=== PATIENT | male | born 1970 | race Caucasian/White ===

== ENCOUNTER → 2018-07-21 | Outpatient (CLI) | payer OTHER ==
[2012-09-09 16:50] VITALS: BP 120/85
[2018-07-21 11:42] LABS: EOS # 0.1 (0.04-0.40); EOS % 1.8 % (0.0-4.0); HEMATOCRIT 43.1 % (42.0-52.0); HEMOGLOBIN 14.7 g/dL (13.5-18.0); LYMPH# 1.2 (1.50-4.00); MEAN CELL VOLUME 86 fl (78-100); MEAN CORPUSCULAR HEMOGLOBIN 29 pg (27-31); MEAN CORPUSCULAR HGB CONC 34 g/dL (33-37); MEAN PLATELET VOLUME 9.9 fl (7.4-10.4); MONO # 0.5 (0.20-0.80); NEU # 3.3 (1.40-6.50); PLATELET COUNT 276 K/mm3 (130-400); RED BLOOD COUNT 5.04 M/mm3 (4.20-5.60); WHITE BLOOD COUNT 5.1 K/mm3 (4.8-10.8)
[2018-07-21 11:50] LABS: CALCIUM 9.7 mg/dL (8.4-10.2); POTASSIUM 4.6 mmol/L (3.6-5.0); TOTAL BILIRUBIN 0.9 mg/dL (0.2-1.3); TOTAL PROTEIN 8.2 g/dL (6.3-8.2)
== END ==
LOC: RAD 11:14
PROVIDERS: Family Medicine
DX: Z00.00 Encounter for general adult medical examination without abnormal findings (principal); E04.9 Nontoxic goiter, unspecified; R91.1 Solitary pulmonary nodule; R53.83 Other fatigue

== ENCOUNTER → 2018-08-07 | Outpatient (CLI) | payer OTHER ==
[2012-09-09 16:50] VITALS: BP 120/85
== END ==
LOC: RAD 13:59
DX: R63.4 Abnormal weight loss (principal); R53.83 Other fatigue; R05 Cough

== ENCOUNTER → 2018-08-08 | Outpatient (CLI) | payer OTHER ==
[2012-09-09 16:50] VITALS: BP 120/85
== END ==
LOC: RAD 08:23
DX: M46.86 Other specified inflammatory spondylopathies, lumbar region (principal); R63.4 Abnormal weight loss; R53.83 Other fatigue; R91.1 Solitary pulmonary nodule; R82.90 Unspecified abnormal findings in urine
CPT/HCPCS: Q9967

== ENCOUNTER → 2018-08-26 | Day surgery (SDC) | payer OTHER ==
[2012-09-09 16:50] VITALS: BP 120/85
[2018-09-02 02:20] LABS: VITAMIN D 1,25 DIHYDROXY 70 pg/mL (18-64)
== END ==
LOC: MSO 12:28
PROVIDERS: Internal Medicine Gastroenterology
DX: R63.0 Anorexia (principal); K21.0 Gastro-esophageal reflux disease with esophagitis; R63.4 Abnormal weight loss; J45.909 Unspecified asthma, uncomplicated
CPT/HCPCS: 00813; J2704; J7120

== ENCOUNTER → 2018-09-01 | Outpatient (CLI) | payer OTHER ==
[2012-09-09 16:50] VITALS: BP 120/85
[2018-09-01 13:33] LABS: URINE APPEARANCE CLEAR; URINE COLOR YELLOW
[2018-09-01 13:34] LABS: URINE BILIRUBIN NEGATIVE (NEGATIVE); URINE BLOOD NEGATIVE (NEGATIVE); URINE GLUCOSE NEGATIVE (NEGATIVE); URINE KETONE NEGATIVE (NEGATIVE); URINE LEUKOCYTE ESTERASE NEGATIVE (NEGATIVE); URINE NITRATE NEGATIVE (NEGATIVE); URINE PROTEIN(semi-quant) NEGATIVE (NEGATIVE); URINE UROBILINOGEN NORMAL (NORMAL); URINE WBC 0-1 /hpf (0-3)
== END ==
LOC: LAB 12:15
PROVIDERS: Family Medicine
DX: N39.9 Disorder of urinary system, unspecified (principal); R91.1 Solitary pulmonary nodule; R53.83 Other fatigue; R63.4 Abnormal weight loss; R05 Cough

== ENCOUNTER → 2018-09-15 | Outpatient (CLI) | payer OTHER ==
[2012-09-09 16:50] VITALS: BP 120/85
== END ==
LOC: LAB 16:28
DX: R20.0 Anesthesia of skin (principal); R53.83 Other fatigue

== ENCOUNTER → 2018-10-01 | Outpatient (CLI) | payer OTHER ==
[2012-09-09 16:50] VITALS: BP 120/85
== END ==
LOC: RAD 08:09
DX: G95.89 Other specified diseases of spinal cord (principal); G93.89 Other specified disorders of brain; R20.0 Anesthesia of skin; R63.4 Abnormal weight loss; R91.1 Solitary pulmonary nodule; R53.83 Other fatigue
CPT/HCPCS: A9585

== ENCOUNTER 2018-10-24 09:00 | Outpatient (RCR) | payer OTHER ==
[2012-09-09 16:50] VITALS: BP 120/85
== END 2019-01-14 | disposition still patient (30) ==
LOC: PT
DX: G37.3 Acute transverse myelitis in demyelinating disease of central nervous system (principal)

== ENCOUNTER → 2018-12-04 | Outpatient (CLI) | payer OTHER ==
[2012-09-09 16:50] VITALS: BP 120/85
== END ==
LOC: RAD 07:00
DX: G37.3 Acute transverse myelitis in demyelinating disease of central nervous system (principal); R74.0 Nonspecific elevation of levels of transaminase and lactic acid dehydrogenase [LDH]

== ENCOUNTER → 2018-12-16 | Outpatient (CLI) | payer OTHER ==
[2012-09-09 16:50] VITALS: BP 120/85
[2018-12-16 17:22] LABS: ALBUMIN 4.3 g/dL (3.5-5.0)
[2018-12-16 17:25] LABS: TOTAL PROTEIN 6.8 g/dL (6.4-8.3)
[2018-12-16 17:26] LABS: TOTAL BILIRUBIN 0.6 mg/dL (0.2-1.2)
[2018-12-16 17:30] LABS: DIRECT BILIRUBIN 0.2 mg/dL (0.0-0.5)
== END ==
LOC: LAB 16:48
PROVIDERS: Family Medicine
DX: R74.0 Nonspecific elevation of levels of transaminase and lactic acid dehydrogenase [LDH] (principal)

== ENCOUNTER → 2019-01-06 | Outpatient (CLI) | payer OTHER ==
[2012-09-09 16:50] VITALS: BP 120/85
[2019-01-06 15:16] LABS: EOS % 0.7 % (0.0-4.0); HEMOGLOBIN 12.5 g/dL (13.5-18.0); LYMPH# 1.9 (1.50-4.00); MEAN CELL VOLUME 93 fl (78-100); MEAN CORPUSCULAR HEMOGLOBIN 31 pg (27-31); MEAN CORPUSCULAR HGB CONC 33 g/dL (33-37); MEAN PLATELET VOLUME 11.3 fl (7.4-10.4); MONO # 0.6 (0.20-0.80); NEU # 3.3 (1.40-6.50); PLATELET COUNT 209 K/mm3 (130-400); RED CELL DISTRIBUTION WIDTH 14.9 % (11.5-14.5); WHITE BLOOD COUNT 5.9 K/mm3 (4.8-10.8)
[2019-01-06 15:20] LABS: ALBUMIN 3.8 g/dL (3.5-5.0); POTASSIUM 3.9 mmol/L (3.5-5.1)
[2019-01-06 15:22] LABS: CALCIUM 9.2 mg/dL (8.3-10.5)
[2019-01-06 15:23] LABS: TOTAL PROTEIN 6.2 g/dL (6.4-8.3)
[2019-01-06 15:25] LABS: TOTAL BILIRUBIN 0.4 mg/dL (0.2-1.2)
== END ==
LOC: LAB 07:03
PROVIDERS: Family Medicine
DX: G37.3 Acute transverse myelitis in demyelinating disease of central nervous system (principal)

== ENCOUNTER → 2019-02-17 | Outpatient (CLI) | payer OTHER ==
[2012-09-09 16:50] VITALS: BP 120/85
[2019-02-17 18:09] LABS: ALBUMIN 4.8 g/dL (3.5-5.0)
[2019-02-17 18:11] LABS: TOTAL PROTEIN 7.3 g/dL (6.4-8.3)
[2019-02-17 18:13] LABS: TOTAL BILIRUBIN 0.8 mg/dL (0.2-1.2)
[2019-02-17 18:17] LABS: DIRECT BILIRUBIN 0.3 mg/dL (0.0-0.5)
== END ==
LOC: LAB 17:49
DX: R74.8 Abnormal levels of other serum enzymes (principal)

== ENCOUNTER → 2019-03-04 | Outpatient (CLI) | payer OTHER ==
[2012-09-09 16:50] VITALS: BP 120/85
[2019-03-04 18:22] LABS: ALBUMIN 4.6 g/dL (3.5-5.0)
[2019-03-04 18:25] LABS: TOTAL PROTEIN 6.9 g/dL (6.4-8.3)
[2019-03-04 18:26] LABS: TOTAL BILIRUBIN 0.5 mg/dL (0.2-1.2)
[2019-03-04 18:30] LABS: DIRECT BILIRUBIN 0.2 mg/dL (0.0-0.5)
== END ==
LOC: LAB 18:02
PROVIDERS: Family Medicine
DX: R74.8 Abnormal levels of other serum enzymes (principal)

== ENCOUNTER → 2019-03-19 | Outpatient (CLI) | payer OTHER ==
[2012-09-09 16:50] VITALS: BP 120/85
[2019-03-19 17:15] LABS: ALBUMIN 4.2 g/dL (3.5-5.0)
[2019-03-19 17:18] LABS: TOTAL PROTEIN 6.6 g/dL (6.4-8.3)
[2019-03-19 17:20] LABS: TOTAL BILIRUBIN 0.5 mg/dL (0.2-1.2)
[2019-03-19 17:23] LABS: DIRECT BILIRUBIN 0.2 mg/dL (0.0-0.5)
== END ==
LOC: LAB 16:57
DX: R74.8 Abnormal levels of other serum enzymes (principal)

== ENCOUNTER → 2019-03-23 | Outpatient (CLI) | payer OTHER ==
[2012-09-09 16:50] VITALS: BP 120/85
[2019-03-23 16:22] LABS: HEMATOCRIT 42.1 % (42.0-52.0); HEMOGLOBIN 14.2 g/dL (13.5-18.0); MEAN CELL VOLUME 92 fl (78-100); MEAN CORPUSCULAR HEMOGLOBIN 31 pg (27-31); MEAN CORPUSCULAR HGB CONC 34 g/dL (33-37); MEAN PLATELET VOLUME 9.7 fl (7.4-10.4); PLATELET COUNT 259 K/mm3 (130-400); RED BLOOD COUNT 4.57 M/mm3 (4.20-5.60); RED CELL DISTRIBUTION WIDTH 14.5 % (11.5-14.5); WHITE BLOOD COUNT 6.9 K/mm3 (4.8-10.8)
[2019-03-23 16:33] LABS: NEUTROPHILS 77 % (42-75)
[2019-03-23 16:34] LABS: LYMPHOCYTE 9 % (20-51); MONOCYTE 9 % (3-10)
== END ==
LOC: LAB 15:58
PROVIDERS: Psychiatry & Neurology Neurology
DX: G35 Multiple sclerosis (principal); Z79.899 Other long term (current) drug therapy; R94.5 Abnormal results of liver function studies

== ENCOUNTER → 2019-04-27 | Outpatient (CLI) | payer OTHER ==
[2012-09-09 16:50] VITALS: BP 120/85
[2019-04-27 18:08] LABS: HEMOGLOBIN 13.2 g/dL (13.5-18.0); MEAN CELL VOLUME 93 fl (78-100); MEAN CORPUSCULAR HEMOGLOBIN 32 pg (27-31); MEAN CORPUSCULAR HGB CONC 34 g/dL (33-37); PLATELET COUNT 252 K/mm3 (130-400); RED BLOOD COUNT 4.19 M/mm3 (4.20-5.60); WHITE BLOOD COUNT 7.6 K/mm3 (4.8-10.8)
[2019-04-27 18:22] LABS: ALBUMIN 4.5 g/dL (3.5-5.0)
[2019-04-27 18:23] LABS: CALCIUM 9.4 mg/dL (8.3-10.5)
[2019-04-27 18:25] LABS: TOTAL PROTEIN 6.8 g/dL (6.4-8.3)
[2019-04-27 18:26] LABS: TOTAL BILIRUBIN 0.4 mg/dL (0.2-1.2)
[2019-04-27 18:45] LABS: LYMPHOCYTE 11 % (20-51); MONOCYTE 8 % (3-10); NEUTROPHILS 79 % (42-75)
== END ==
LOC: LAB 17:52
PROVIDERS: Psychiatry & Neurology Neurology
DX: Z51.81 Encounter for therapeutic drug level monitoring (principal); Z79.899 Other long term (current) drug therapy

== ENCOUNTER → 2019-07-10 | Outpatient (CLI) | payer OTHER ==
[2012-09-09 16:50] VITALS: BP 120/85
[2019-07-10 17:36] LABS: URINE APPEARANCE CLEAR; URINE BILIRUBIN NEGATIVE (NEGATIVE); URINE BLOOD NEGATIVE (NEGATIVE); URINE COLOR YELLOW; URINE GLUCOSE 50 mg/dL mg/dL (NEGATIVE); URINE KETONE NEGATIVE (NEGATIVE); URINE LEUKOCYTE ESTERASE NEGATIVE (NEGATIVE); URINE NITRATE NEGATIVE (NEGATIVE); URINE PROTEIN(semi-quant) NEGATIVE (NEGATIVE); URINE UROBILINOGEN NORMAL (NORMAL); URINE WBC 0-1 /hpf (0-3)
== END ==
LOC: LAB 17:22
PROVIDERS: Psychiatry & Neurology Neurology
DX: G37.3 Acute transverse myelitis in demyelinating disease of central nervous system (principal); R32 Unspecified urinary incontinence; R39.198 Other difficulties with micturition

== ENCOUNTER → 2019-07-24 | Outpatient (CLI) | payer OTHER ==
[2012-09-09 16:50] VITALS: BP 120/85
[2019-07-24 17:20] LABS: EOS # 0.1 (0.04-0.40); HEMATOCRIT 40.7 % (42.0-52.0); HEMOGLOBIN 13.8 g/dL (13.5-18.0); LYMPH# 1.5 (1.50-4.00); MEAN CELL VOLUME 95 fl (78-100); MEAN CORPUSCULAR HEMOGLOBIN 32 pg (27-31); MEAN CORPUSCULAR HGB CONC 34 g/dL (33-37); MEAN PLATELET VOLUME 9.5 fl (7.4-10.4); MONO # 0.7 (0.20-0.80); NEU # 5.2 (1.40-6.50); PLATELET COUNT 216 K/mm3 (130-400); RED BLOOD COUNT 4.29 M/mm3 (4.20-5.60); RED CELL DISTRIBUTION WIDTH 14.4 % (11.5-14.5); WHITE BLOOD COUNT 7.6 K/mm3 (4.8-10.8)
[2019-07-24 17:27] LABS: ALBUMIN 4.1 g/dL (3.5-5.0)
[2019-07-24 17:28] LABS: CALCIUM 9.1 mg/dL (8.3-10.5)
[2019-07-24 17:29] LABS: TOTAL PROTEIN 6.5 g/dL (6.4-8.3)
[2019-07-24 17:31] LABS: TOTAL BILIRUBIN 0.6 mg/dL (0.2-1.2)
[2019-07-24 17:35] LABS: DIRECT BILIRUBIN 0.2 mg/dL (0.0-0.5)
== END ==
LOC: LAB 17:00
PROVIDERS: Psychiatry & Neurology Neurology
DX: G37.3 Acute transverse myelitis in demyelinating disease of central nervous system (principal); R74.8 Abnormal levels of other serum enzymes; Z79.899 Other long term (current) drug therapy

== ENCOUNTER → 2020-03-17 | Outpatient (CLI) | payer OTHER ==
[2012-09-09 16:50] VITALS: BP 120/85
[2020-03-17 12:34] LABS: HEMATOCRIT 41.3 % (42.0-52.0); HEMOGLOBIN 13.7 g/dL (13.5-18.0); MEAN CELL VOLUME 92 fl (78-100); MEAN CORPUSCULAR HEMOGLOBIN 31 pg (27-31); MEAN CORPUSCULAR HGB CONC 33 g/dL (33-37); MEAN PLATELET VOLUME 10.2 fl (7.4-10.4); PLATELET COUNT 274 K/mm3 (130-400); RED BLOOD COUNT 4.48 M/mm3 (4.20-5.60); RED CELL DISTRIBUTION WIDTH 13.4 % (11.5-14.5); WHITE BLOOD COUNT 4.7 K/mm3 (4.8-10.8)
[2020-03-17 12:38] LABS: ALBUMIN 4.2 g/dL (3.5-5.0); POTASSIUM 3.9 mmol/L (3.5-5.1)
[2020-03-17 12:39] LABS: CALCIUM 9.2 mg/dL (8.3-10.5)
[2020-03-17 12:41] LABS: TOTAL PROTEIN 6.6 g/dL (6.4-8.3)
[2020-03-17 12:42] LABS: TOTAL BILIRUBIN 0.6 mg/dL (0.2-1.2)
[2020-03-17 12:43] LABS: LYMPHOCYTE 30 % (20-51); MONOCYTE 11 % (3-10); NEUTROPHILS 57 % (42-75)
== END ==
LOC: LAB 12:06
PROVIDERS: Psychiatry & Neurology Neurology
DX: D86.89 Sarcoidosis of other sites (principal); Z79.899 Other long term (current) drug therapy

== ENCOUNTER → 2020-04-27 | Outpatient (CLI) | payer OTHER ==
[2012-09-09 16:50] VITALS: BP 120/85
== END ==
LOC: RAD 09:49 → MAMMO 10:00 → RAD 10:00
DX: Z13.820 Encounter for screening for osteoporosis (principal); G37.3 Acute transverse myelitis in demyelinating disease of central nervous system; Z79.899 Other long term (current) drug therapy

== ENCOUNTER → 2020-06-30 | Outpatient (CLI) | payer OTHER ==
[2012-09-09 16:50] VITALS: BP 120/85
[2020-06-30 17:37] LABS: EOS % 0.3 % (0.0-4.0); HEMATOCRIT 40.1 % (42.0-52.0); HEMOGLOBIN 13.4 g/dL (13.5-18.0); LYMPH# 0.8 (1.50-4.00); MEAN CELL VOLUME 96 fl (78-100); MEAN CORPUSCULAR HEMOGLOBIN 32 pg (27-31); MEAN CORPUSCULAR HGB CONC 33 g/dL (33-37); MEAN PLATELET VOLUME 10.1 fl (7.4-10.4); MONO # 0.7 (0.20-0.80); NEU # 4.1 (1.40-6.50); PLATELET COUNT 243 K/mm3 (130-400); RED BLOOD COUNT 4.18 M/mm3 (4.20-5.60); RED CELL DISTRIBUTION WIDTH 16.2 % (11.5-14.5); WHITE BLOOD COUNT 5.8 K/mm3 (4.8-10.8)
[2020-06-30 17:41] LABS: ALBUMIN 4.2 g/dL (3.5-5.0); POTASSIUM 4.7 mmol/L (3.5-5.1)
[2020-06-30 17:43] LABS: CALCIUM 9.3 mg/dL (8.3-10.5)
[2020-06-30 17:44] LABS: TOTAL PROTEIN 6.9 g/dL (6.4-8.3)
[2020-06-30 17:46] LABS: TOTAL BILIRUBIN 0.7 mg/dL (0.2-1.2)
== END ==
LOC: LAB 17:05
DX: D86.89 Sarcoidosis of other sites (principal)

== ENCOUNTER → 2020-12-28 | Outpatient (CLI) | payer OTHER ==
[2020-12-28 18:44] LABS: BASO # 0.03 K/mm3 (0.02-0.10); EOS # 0.06 K/mm3 (0.04-0.40); EOS % 0.9 % (0.0-4.0); HEMATOCRIT 42.9 % (42.0-52.0); HEMOGLOBIN 14.6 g/dL (13.5-18.0); LYMPH# 1.22 K/mm3 (1.50-4.00); MEAN CELL VOLUME 93 fl (78-100); MEAN CORPUSCULAR HEMOGLOBIN 32 pg (27-31); MEAN CORPUSCULAR HGB CONC 34 g/dL (33-37); MEAN PLATELET VOLUME 10.3 fl (7.4-10.4); MONO # 0.68 K/mm3 (0.20-0.80); NEU # 4.78 K/mm3 (1.40-6.50); PLATELET COUNT 261 K/mm3 (130-400); RED BLOOD COUNT 4.63 M/mm3 (4.20-5.60); RED CELL DISTRIBUTION WIDTH 14.1 % (11.5-14.5); WHITE BLOOD COUNT 6.8 K/mm3 (4.8-10.8)
[2020-12-28 18:47] LABS: ALBUMIN 4.4 g/dL (3.5-5.0)
[2020-12-28 18:48] LABS: POTASSIUM 4.3 mmol/L (3.5-5.1)
[2020-12-28 18:49] LABS: CALCIUM 10.1 mg/dL (8.3-10.5)
[2020-12-28 18:50] LABS: TOTAL PROTEIN 7.3 g/dL (6.4-8.3)
== END ==
LOC: LAB 18:14
PROVIDERS: Psychiatry & Neurology Neurology
DX: D86.89 Sarcoidosis of other sites (principal)

== ENCOUNTER 2021-03-30 12:59 | Outpatient (RCR) | payer OTHER | END 2021-04-24 | disposition home or self-care (01) | LOC: PT | DX: G37.3 Acute transverse myelitis in demyelinating disease of central nervous system (principal) ==

== ENCOUNTER 2021-04-28 08:57 | Outpatient (RCR) | payer OTHER | END 2021-05-22 | disposition home or self-care (01) | LOC: PT | DX: G37.3 Acute transverse myelitis in demyelinating disease of central nervous system (principal) ==

== ENCOUNTER → 2021-05-11 | Outpatient (CLI) | payer OTHER | LOC: RAD 17:54 | DX: M47.812 Spondylosis without myelopathy or radiculopathy, cervical region (principal); G82.50 Quadriplegia, unspecified; D86.89 Sarcoidosis of other sites; R53.1 Weakness | CPT/HCPCS: A9585 ==

== ENCOUNTER → 2021-05-14 | Outpatient (CLI) | payer OTHER ==
[2021-05-14 09:13] LABS: BASO # 0.02 K/mm3 (0.02-0.10); EOS # 0.03 K/mm3 (0.04-0.40); EOS % 0.5 % (0.0-4.0); HEMATOCRIT 39.5 % (42.0-52.0); HEMOGLOBIN 13.8 g/dL (13.5-18.0); LYMPH# 0.65 K/mm3 (1.50-4.00); MEAN CELL VOLUME 91 fl (78-100); MEAN CORPUSCULAR HEMOGLOBIN 32 pg (27-31); MEAN CORPUSCULAR HGB CONC 35 g/dL (33-37); MEAN PLATELET VOLUME 9.7 fl (7.4-10.4); MONO # 0.54 K/mm3 (0.20-0.80); NEU # 5.34 K/mm3 (1.40-6.50); PLATELET COUNT 225 K/mm3 (130-400); RED BLOOD COUNT 4.35 M/mm3 (4.20-5.60); RED CELL DISTRIBUTION WIDTH 13.6 % (11.5-14.5); WHITE BLOOD COUNT 6.6 K/mm3 (4.8-10.8)
[2021-05-14 11:23] LABS: ALBUMIN 4.2 g/dL (3.5-5.0); POTASSIUM 4.3 mmol/L (3.5-5.1)
[2021-05-14 11:25] LABS: CALCIUM 9.6 mg/dL (8.3-10.5)
[2021-05-14 11:28] LABS: TOTAL BILIRUBIN 0.7 mg/dL (0.2-1.2)
[2021-05-18 08:29] LABS: METHYLMALONIC ACID, SERUM 0.11 nmol/mL (<=0.40)
== END ==
LOC: LAB 08:53
PROVIDERS: Psychiatry & Neurology Neurology
DX: E53.8 Deficiency of other specified B group vitamins (principal); D86.89 Sarcoidosis of other sites

== ENCOUNTER 2021-05-24 08:30 | Outpatient (RCR) | payer OTHER | END 2021-06-22 | disposition still patient (30) | LOC: PT | DX: G37.3 Acute transverse myelitis in demyelinating disease of central nervous system (principal) ==

== ENCOUNTER 2021-06-28 16:00 | Outpatient (RCR) | payer OTHER | END 2021-07-22 | disposition still patient (30) | LOC: PT | DX: G37.3 Acute transverse myelitis in demyelinating disease of central nervous system (principal) ==

== ENCOUNTER 2021-07-26 08:14 | Outpatient (RCR) | payer OTHER | END 2021-08-22 | disposition home or self-care (01) | LOC: PT | DX: G37.3 Acute transverse myelitis in demyelinating disease of central nervous system (principal) ==

== ENCOUNTER 2021-08-23 14:46 | Outpatient (RCR) | payer OTHER | END 2021-09-21 | disposition home or self-care (01) | LOC: PT | DX: G37.3 Acute transverse myelitis in demyelinating disease of central nervous system (principal) ==

== ENCOUNTER → 2021-09-10 | Outpatient (CLI) | payer OTHER ==
[2021-09-10 09:46] LABS: CALCIUM 9.5 mg/dL (8.3-10.5)
== END ==
LOC: LAB 09:23
DX: I50.20 Unspecified systolic (congestive) heart failure (principal); D86.85 Sarcoid myocarditis

== ENCOUNTER → 2021-10-27 | Outpatient (CLI) | payer OTHER ==
[2021-10-27 10:29] LABS: ALBUMIN 4.1 g/dL (3.5-5.0)
[2021-10-27 10:32] LABS: TOTAL PROTEIN 6.5 g/dL (6.4-8.3)
[2021-10-27 10:34] LABS: TOTAL BILIRUBIN 0.5 mg/dL (0.2-1.2)
[2021-10-27 10:38] LABS: DIRECT BILIRUBIN 0.2 mg/dL (0.0-0.5)
== END ==
LOC: LAB 09:31
PROVIDERS: Physician Assistant
DX: Z79.899 Other long term (current) drug therapy (principal)

== ENCOUNTER → 2021-11-03 | Outpatient (CLI) | payer OTHER | LOC: RAD 13:39 | DX: D86.89 Sarcoidosis of other sites (principal); R26.1 Paralytic gait | CPT/HCPCS: Q9967 ==

== ENCOUNTER 2022-01-19 08:56 | Outpatient (RCR) | payer OTHER | END 2022-01-22 | disposition still patient (30) | LOC: PT | DX: D86.89 Sarcoidosis of other sites (principal); R26.1 Paralytic gait ==

== ENCOUNTER 2022-01-23 08:00 | Outpatient (RCR) | payer OTHER | END 2022-02-21 | disposition still patient (30) | LOC: PT | DX: D86.89 Sarcoidosis of other sites (principal); R26.1 Paralytic gait ==

== ENCOUNTER → 2022-06-28 | Outpatient (CLI) | payer OTHER ==
[2022-06-28 18:25] LABS: BASO # 0.01 K/mm3 (0.02-0.10); EOS # 0.01 K/mm3 (0.04-0.40); EOS % 0.1 % (0.0-4.0); HEMATOCRIT 40.7 % (42.0-52.0); HEMOGLOBIN 13.4 g/dL (13.5-18.0); LYMPH# 0.74 K/mm3 (1.50-4.00); MEAN CELL VOLUME 89 fl (78-100); MEAN CORPUSCULAR HEMOGLOBIN 29 pg (27-31); MEAN CORPUSCULAR HGB CONC 33 g/dL (33-37); MEAN PLATELET VOLUME 9.2 fl (7.4-10.4); MONO # 0.46 K/mm3 (0.20-0.80); NEU # 7.46 K/mm3 (1.40-6.50); PLATELET COUNT 280 K/mm3 (130-400); RED BLOOD COUNT 4.58 M/mm3 (4.20-5.60); RED CELL DISTRIBUTION WIDTH 14.8 % (11.5-14.5); WHITE BLOOD COUNT 8.7 K/mm3 (4.8-10.8)
[2022-06-28 18:35] LABS: ALBUMIN 4.4 g/dL (3.5-5.0)
[2022-06-28 18:36] LABS: POTASSIUM 4.8 mmol/L (3.5-5.1)
[2022-06-28 18:37] LABS: CALCIUM 9.8 mg/dL (8.3-10.5)
[2022-06-28 18:38] LABS: TOTAL PROTEIN 7.9 g/dL (6.4-8.3)
[2022-06-28 18:40] LABS: TOTAL BILIRUBIN 0.3 mg/dL (0.2-1.2)
[2022-06-28 19:35] LABS: URINE APPEARANCE CLOUDY; URINE BILIRUBIN NEGATIVE (NEGATIVE); URINE COLOR YELLOW; URINE GLUCOSE 50 mg/dL (NEGATIVE); URINE KETONE TRACE (NEGATIVE); URINE PROTEIN(semi-quant) 1+ (NEGATIVE)
[2022-06-28 19:36] LABS: URINE BLOOD 250 ery/uL (NEGATIVE); URINE LEUKOCYTE ESTERASE 1+ (NEGATIVE); URINE NITRATE POSITIVE (NEGATIVE); URINE UROBILINOGEN NORMAL (NORMAL); URINE WBC 31-50 /hpf (0-3)
== END ==
LOC: LAB 17:54
PROVIDERS: Psychiatry & Neurology Neurology
DX: G37.3 Acute transverse myelitis in demyelinating disease of central nervous system (principal); Z79.899 Other long term (current) drug therapy